=== PATIENT | male | born 1970 | race Caucasian/White ===

== ENCOUNTER 2019-12-12 12:00 | Emergency (ER) | payer OTHER ==
[2019-12-12] MEDS ORDERED: ACETAMINOPHEN EXTRA STRENGTH 500 MG TABLET ONE (12:59)
[2019-12-12 13:32] LABS: CREATININE 1.1 mg/dL (0.5-1.5); POTASSIUM 3.3 mmol/L (3.5-5.1)
== END 2019-12-12 13:19 | disposition home or self-care (01) ==
LOC: EDH 12:00
DX: S62.325A Displaced fracture of shaft of fourth metacarpal bone, left hand, initial encounter for closed fracture (principal); M25.512 Pain in left shoulder; Z72.0 Tobacco use; X58.XXXA Exposure to other specified factors, initial encounter; Y93.89 Activity, other specified; Y92.89 Other specified places as the place of occurrence of the external cause; Y99.8 Other external cause status
CPT/HCPCS: 29125; 36415; 73030; 73130; 80048